=== PATIENT | male | born 1950 | race Caucasian/White ===

== ENCOUNTER 2017-05-04 08:32 | Day surgery (SDC) | payer MEDICARE ==
[2017-05-03 11:19] VITALS: BMI 29.9
[2017-05-04 09:47] LABS: #Basophils 0.1 thou/uL (0.0-0.2); #Eosinphils 0.4 thou/uL (0.0-0.7); #Lymphocytes 1.5 thou/uL (1.20-3.40); #Monocytes 0.5 thou/uL (0.11-0.59); #Neutrophils 2.6 thou/uL (1.40-6.50); %Basophils 1.1 % (0.0-1.0); %Lymphocytes 29.7 % (21.0-51.0); %Monocytes 10.6 % (0.0-10.0); Hematocrit 49.7 % (42.0-52.0); Mean Platelet Volume 7.8 fL (7.4-10.4); Red Blood Cell (RBC) Count 5.27 mill/uL (4.70-6.10); White Blood Cell (WBC) Count 5.1 thou/uL (4.8-10.8)
[2017-05-04 10:03] LABS: ALT (SGPT) 33 U/L (8-55); AST (SGOT) 26 U/L (5-34); Alkaline Phosphatase 97 U/L (40-150); Anion Gap 12 mmol/L (10-20); BUN (Urea Nitrogen) 21 mg/dL (8.4-25.7); Bilirubin, Direct 0.4 mg/dL (0.1-0.3); Calc. Creatinine Clearance 121 mL/min (70-130); Calcium 9.4 mg/dL (7.8-10.44); Carbon Dioxide 26 mmol/L (23-31); Chloride 107 mmol/L (98-107); Estimated GFR-MDRD Greater than 90; Protein, Total 6.7 g/dL (5.8-8.1)
[2017-05-04] MEDS ORDERED: CEFAZOLIN/Water 2 GM/20 ML SYRINGE ONE (10:21)
[2017-05-04] MEDS ORDERED: Midazolam HCl 2 mg/2 ml Vial ONE (10:46)
[2017-05-04] MEDS ORDERED: Fentanyl 250 MCG/5 ML VIAL ONE (10:46)
[2017-05-04] MEDS ORDERED: Fentanyl 100 MCG/2 ML VIAL ONE (10:46)
[2017-05-04] MEDS ORDERED: Iothalamate Meglumine 60% 50 ML VIAL FS ONE (10:47)
[2017-05-04] MEDS ORDERED: Bupivacaine/Epinephrine 0.25% 30 ML VIAL ONE (10:47)
[2017-05-04] MEDS ORDERED: Indocyanine Green 25 MG/10 ML VIAL ONE (11:08)
[2017-05-04] MEDS ORDERED: Lidocaine 1% PF 5 ML VIAL ONE (11:23)
[2017-05-04] MEDS ORDERED: Propofol 200 MG/20 ML VIAL ONE (11:23)
[2017-05-04] MEDS ORDERED: Dexamethasone 20 MG/5 ML VIAL ONE (11:23)
[2017-05-04] MEDS ORDERED: Glycopyrrolate 0.2 MG/ML 5 ML SYRINGE ONE (11:23)
[2017-05-04] MEDS ORDERED: Ondansetron HCl/PF 4 MG/2 ML Vial ONE (11:23)
[2017-05-04] MEDS ORDERED: HYDROcodone/Acetaminophen 5/325 mg Tablet ONE (14:14)
--- NOTE | 2017-05-04 17:30 | RAD ---
INTRAOPERATIVE CHOLANGIOGRAM 05/04/17 COMPARISON: None. HISTORY: Imaging during surgery. FINDINGS: Small volume extraluminal contrast media is suggested in the gallbladder fossa. There is contrast med ia within an incompletely imaged pancreatic duct, partially obscured by surgical instruments. There i s contrast media within intrahepatic biliary tree and CBD, neither of which appear dilated. The dista l CBD is not opacified; however, and thus, not well assessed. Contrast media is seen within the duode num. IMPRESSION: No discrete filling defect is seen within the opacified biliary tree. However, the CBD is not opacifi ed distally on this examination and thus not well assessed. POS: MARY
--- NOTE | 2017-05-05 10:25 | OP ---
DATE OF PROCEDURE: 05/04/2017 PREOPERATIVE DIAGNOSIS: Acute cholecystitis. POSTOPERATIVE DIAGNOSIS: Acute cholecystitis. PROCEDURE: Laparoscopic cholecystectomy with intraoperative cholangiogram. SURGEON: Rodrigue Chua M.D. ANESTHESIA: General. ESTIMATED BLOOD LOSS: Minimal. COMPLICATIONS: None. SPECIMEN: Gallbladder. FINDINGS: Normal cholangiogram. PROCEDURE IN DETAIL: The patient was taken to the operating room and placed supine on the table. Af ter general anesthetic was obtained, the abdomen was shaved, prepped and draped in a sterile fashion. Curved incision made below the umbilicus. Cautery was used to dissect down to and score the fascia . Abdominal cavity was entered using a 12-mm trocar. Left and right abdominal 8 mm robot trocars we re placed. All ports were docked to the robot. The patient had been placed in reverse Trendelenburg position. The patient had significant inflammatory change in the area of the gallbladder. Decision was made to convert regular laparoscopy. An additional 5 mm laparoscopic port had to be placed and the surgeon has scrubbed back into the bedside. The peritoneum of the gallbladder was opened anterio rly and posteriorly. The dissection was taken down to the level of the fundus of the gallbladder. T he critical view triangle was seen showing only the cystic duct and cystic artery branching from medi al to lateral. There were no other branching structures. A clip was placed high on the cystic duct. A small ductotomy was made just proximal to that. A cholangiogram was brought in through a separat e stab incision and placed in the cystic duct and a cholangiogram was performed, which shows good con trast flow into the duodenum, right and left hepatic duct system without obstruction or injury. The cholangiocatheter was removed. PDS endoloop was used to ligate the cystic duct proximally. Cystic d uct was cut using laparoscopic scissors. Cystic artery was taken using two clips proximally, one cli p distally, and cut using laparoscopic scissors. Cautery was used to dissect the gallbladder out of the gallbladder fossa. The gallbladder was placed in an Endo catch bag and brought out through the H asson. There was no bleeding or bile in the liver bed. The right upper quadrant was irrigated using sterile solution. All port sites were infiltrated using local anesthetic. All ports were removed u nder camera visualization without bleeding. PDS was used to close the fascial defect below the umbil icus. All incisions were irrigated and closed using 4-0 Monocryl and Dermabond. The patient was en route to recovery in stable condition. All instrument counts, needle counts, and lap counts were cor rect.
--- NOTE | 2017-05-09 08:38 | EKG ---
Test Reason : PREOP Blood Pressure : / mmHG Vent. Rate : 051 BPM Atrial Rate : 051 BPM P-R Int : 198 ms QRS Dur : 082 ms QT Int : 468 ms P-R-T Axes : 017 -08 026 degrees QTc Int : 431 ms Sinus bradycardia Inferior infarct , age undetermined Possible Anterior infarct , age undetermined Abnormal ECG No previous ECGs available Confirmed by Laura OQUENDO ([id number]) on 05/09/2017 8:38:00 AM Referred By: YARELI Confirmed By:Laura OQUENDO
== END 2017-05-04 15:00 | disposition home or self-care (01) ==
LOC: SDC 08:32
PROVIDERS: ATTEND Surgery
PROC: 0FT44ZZ Resection of Gallbladder, Percutaneous Endoscopic Approach (ICD-10-PCS; principal; 2017-05-04)
PROC: BF111ZZ Fluoroscopy of Biliary and Pancreatic Ducts using Low Osmolar Contrast (ICD-10-PCS; 2017-05-04)
DX: K80.12 Calculus of gallbladder with acute and chronic cholecystitis without obstruction (principal); M19.90 Unspecified osteoarthritis, unspecified site; Z79.82 Long term (current) use of aspirin; Z96.612 Presence of left artificial shoulder joint; Z96.611 Presence of right artificial shoulder joint; Z98.890 Other specified postprocedural states
CPT/HCPCS: 36415; 47532; 80048; 80076; 85025; 88304; 93005; 93010; J1100; J2001; J2250; J2405; J2704; J3010; Q9961